=== PATIENT | male | born 1970 | race Caucasian/White ===

== ENCOUNTER → 2017-03-15 | Outpatient (CLI) | payer OTHER | LOC: BMCIMAGING 09:41 | PROVIDERS: ATTEND Orthopaedic Surgery Hand Surgery | DX: Z47.89 Encounter for other orthopedic aftercare (principal); M25.532 Pain in left wrist; Z87.81 Personal history of (healed) traumatic fracture ==

== ENCOUNTER → 2017-07-06 | Outpatient (CLI) | payer OTHER | LOC: BMCIMAGING 11:40 | PROVIDERS: ATTEND Orthopaedic Surgery Hand Surgery | DX: M25.511 Pain in right shoulder (principal) ==

== ENCOUNTER 2017-08-13 20:02 | Emergency (ER) | payer OTHER ==
[2017-08-13] MEDS ORDERED: TDAP ADULT 0.5 ML INJ (BOOSTRIX) IM ONE (20:18)
--- NOTE | 2017-08-13 21:28 | EDPHY ---
H & P Time Seen by Provider: 08/13/17 20:12 HPI/ROS: CHIEF COMPLAINT: Facial laceration HISTORY OF PRESENT ILLNESS: 47-year-old male presents to the emergency department with facial laceration. Patient was practicing golf swings with his 7-year-old son in the front yard and his son swung the golf club and hit him in his face. He did not lose consciousness. Denies visual disturbance. No fevers or chills. No neck or back pain. He is unsure of his last tetanus shot. Denies double vision, blurry vision, retained foreign body. He has a mild headache. REVIEW OF SYSTEMS: Constitutional: No fever, no chills. Eyes: No double or blurry vision. ENT: No sore throat. Respiratory: No cough, no shortness of breath. Cardiac: No chest pain. Gastrointestinal: No abdominal pain, vomiting or diarrhea. Genitourinary: No dysuria. Musculoskeletal: No neck or back pain. Skin: Facial laceration as above. No rashes. Neurological: Mild headache. Past Medical/Surgical History: Appendectomy, orthopedic surgery Social History: Smoking Status: Never smoked Physical Exam: General Appearance: Alert, no distress. Mentating normally and answering questions appropriately. Eyes: Pupils equal and round. Extraocular motions are all intact. ENT: Mouth: Mucous membranes moist. Respiratory: No wheezing, rhonchi, or rales, lungs are clear to auscultation. Cardiovascular: Regular rate and rhythm. Gastrointestinal: Abdomen is soft and nontender, no masses, no rebound or guarding, bowel sounds normal. Neurological: Alert and oriented x 3, cranial nerves II through XII grossly intact Skin: 2.5 cm irregular laceration just medial to his left eyebrow. No palpable facial bone tenderness. Warm and dry, no rashes. Musculoskeletal: Nontender to palpate along the cervical, thoracic or lumbar spine. Neck is supple. Extremities: Full range of motion and no peripheral edema. Psychiatric: Patient is oriented X 3, there is no agitation. Constitutional: Initial Vital Signs Temperature (C) 36.5 C 08/13/17 20:04 Heart Rate 86 08/13/17 20:04 Respiratory Rate 16 08/13/17 20:04 Blood Pressure 128/86 H 08/13/17 20:04 O2 Sat (%) 99 08/13/17 20:04 O2 Delivery Mode Room Air Allergies/Adverse Reactions: NSAIDS (Non-Steroidal Anti-Inflamma Allergy (Verified 08/13/17 20:04) Home Medications: Medication Instructions Recorded NK [No Known Home Meds] 08/13/17 MDM/Departure - MDM Procedures: Laceration repair. Verbal consent was obtained from the patient. The 2.5 cm laceration on the left medial eyebrow was anesthetized using 1% lidocaine with epinephrine. The wound was irrigated with saline, draped and explored to its base with a gloved finger. There were no deep structures involved. The wound was repaired with 6 0 Prolene, 10 sutures. The wound repair was complex. The procedure was performed by myself. Medications Given: Discontinued Medications Diphtheria/Tetanus/Acell Pertussis (Boostrix) 0.5 ml IM .ONCE ONE Stop: 08/13/17 20:19 Last Admin: 08/13/17 20:31 Dose: 0.5 ml ED Course/Re-evaluation: 47-year-old male presents to the emergency department with facial laceration. The wound was repaired, see procedure note. Patient did not lose consciousness. He has a mild headache. He has a normal neurologic examination. I do not think imaging is indicated. Patient was given closed- head injury precautions. He will return specifically develops headache, vomiting, altered mental status or any other concerns. Patient was given a tetanus shot. - Depart Disposition: Home, Routine, Self-Care Clinical Impression: Facial laceration Qualifiers: Encounter type: initial encounter Qualified Code(s): S01.81XA - Laceration without foreign body of other part of head, initial encounter Condition: Good Instructions: Care For Your Stitches (ED), Laceration (ED), Acute Wounds (ED) Additional Instructions: Wound Care Follow-Up: Removal of sutures in 5 days. Suture removal is complimentary in uncomplicated cases. Infection or abnormal findings would require reevaluation by the MD. In that case, you may be billed. Return to the emergency department if you develop headache, vomiting, altered mental status, or if you feel worse in any way. Referrals: Effie Lindquist MD [Primary Care Provider] - As per Instructions
[2017-08-13 21:46] VITALS: BP 132/75
== END 2017-08-20 08:23 | disposition home or self-care (01) ==
PROC: 0HQ1XZZ Repair Face Skin, External Approach (ICD-10-PCS; principal; 2017-08-13)
DX: S01.81XA Laceration without foreign body of other part of head, initial encounter (principal); Z23 Encounter for immunization; W21.13XA Struck by golf club, initial encounter; Y99.8 Other external cause status; Y93.53 Activity, golf